=== PATIENT | female | born 1995 | race African-American/Black ===

== ENCOUNTER 2020-10-06 02:30 | Emergency (ER) | payer MEDICAID, MEDICARE ==
[~2020-10-06] VITALS: Ht 160 cm; Wt 118.0 kg
[2020-10-06 04:00] VITALS: BP 122/77
[2020-10-06 04:53] LABS: BASOPHILS % 0.6 % (0.0-2.0); EOSINOPHILS % 0.6 % (0.0-5.0); HEMATOCRIT. 39.2 % (36.0-48.0); HEMOGLOBIN. 13.2 g/dL (12.0-16.0); LYMPHOCYTES % 28.5 % (20.0-50.0); MEAN CORPUSCULAR HEMOGLOBIN 31.6 pg (28.0-32.0); MEAN CORPUSCULAR VOLUME 93.5 fL (81.0-99.0); MEAN PLATELET VOLUME 6.9 fl (7.4-10.4); MONOCYTES % 6.8 % (2.0-8.0); NEUTROPHILS % 63.5 % (40.0-76.0); PLATELET 419 x1000/uL (130-400); RED BLOOD CELL COUNT 4.19 mill/uL (4.2-5.4); RED CELL DISTRIBUTION WIDTH 13.4 % (11.6-14.6)
[2020-10-06 05:11] LABS: CHLORIDE 107 mEq/L (98-107)
[2020-10-06 05:54] LABS: HCG SCREEN NEGATIVE
== END 2020-10-06 05:52 | disposition home or self-care (01) ==
LOC: ER 02:30
DX: R07.89 Other chest pain (principal)
CPT/HCPCS: 36415; 71045; 80053; 84484; 84703; 85025; 85379; 93005; 99285